=== PATIENT | male | born 1945 | race Asian ===

== ENCOUNTER 2021-09-10 05:10 | Day surgery (SDC) | payer OTHER ==
[2021-09-08 14:34] VITALS: BMI 19.7
[2021-09-10] MEDS ORDERED: LIDOCAINE HCL 1%, 10 MG/ML (20ML VIAL) ONE ×2 (10:13→13:50)
[2021-09-10] MEDS ORDERED: HEPARIN NA (PORCINE) 5,000 UNITS/ML 1ML VIAL ONE ×3 (10:13→13:43)
[2021-09-10] MEDS ORDERED: HEPARIN NA (PORCINE) 5,000 UNITS/ML 1ML VIAL SQ ONE ×2 (14:22→14:40)
[2021-09-10] MEDS ORDERED: ceFAZolin SODIUM 1 GM VIAL IVPB ONE ×2 (14:22→14:30)
[2021-09-10] MEDS ORDERED: LIDOCAINE HCL 1%, 10 MG/ML (20ML VIAL) NR ONE ×2 (14:22→14:35)
[2021-09-10] MEDS ORDERED: IOVERSOL 320 MG/ML ML IV ONE ×2 (14:23→14:41)
[2021-09-10] MEDS ORDERED: MIDAZOLAM HCL 2 MG/2 ML SINGLE DOSE VIAL ONE ×2 (14:25)
[2021-09-10] MEDS ORDERED: ceFAZolin SODIUM 1 GM VIAL ONE (14:30)
[2021-09-10] MEDS ORDERED: PROPOFOL 20 ML ONE ×2 (14:39)
[2021-09-10] MEDS ORDERED: ONDANSETRON 4 MG/2 ML VIAL IVPUSH PRN (14:45)
[2021-09-10] MEDS ORDERED: oxyCODONE HCL 5 MG TABLET PO PRN (14:45)
[2021-09-10] MEDS ORDERED: LABETALOL HCL 5 MG/1 ML (100MG/20 ML VIAL) IVPUSH ONE (17:21)
[2021-09-10] MEDS ORDERED: hydrALAZINE HCL 20 MG/ML VIAL ONE (17:40)
[2021-09-10] MEDS ORDERED: hydrALAZINE HCL 20 MG/ML VIAL IVPUSH ONE (17:45)
[2021-09-10 18:47] VITALS: BP 100/48; PULSE 65; TEMP 97.2
== END 2021-09-10 18:30 | disposition home or self-care (01) ==
LOC: JASU-SURG 05:10
PROVIDERS: ATTEND Surgery Vascular Surgery
PROC: 047M3DZ Dilation of Right Popliteal Artery with Intraluminal Device, Percutaneous Approach (ICD-10-PCS; 2021-09-10)
PROC: B41DYZZ Fluoroscopy of Aorta and Bilateral Lower Extremity Arteries using Other Contrast (ICD-10-PCS; 2021-09-10)
PROC: 047K3EZ Dilation of Right Femoral Artery with Two Intraluminal Devices, Percutaneous Approach (ICD-10-PCS; principal; 2021-09-10 14:00)
DX: I70.211 Atherosclerosis of native arteries of extremities with intermittent claudication, right leg (principal); Z72.0 Tobacco use; E11.9 Type 2 diabetes mellitus without complications; Z79.84 Long term (current) use of oral hypoglycemic drugs
CPT/HCPCS: 37227; C1877; 76000-TC-FY; 82962; 94760; J1644

== ENCOUNTER 2022-11-08 09:04 | Day surgery (SDC) | payer OTHER ==
[2022-11-05 16:56] VITALS: BMI 20.3
[2022-11-08] MEDS ORDERED: LIDOCAINE HCL 1%, 10 MG/ML (20ML VIAL) ONE (12:45)
[2022-11-08] MEDS ORDERED: HEPARIN NA (PORCINE) 5,000 UNITS/ML 1ML VIAL ONE (12:47)
[2022-11-08] MEDS ORDERED: PROPOFOL 20 ML ONE (13:54)
[2022-11-08] MEDS ORDERED: MIDAZOLAM HCL 2 MG/2 ML SINGLE DOSE VIAL ONE (13:55)
[2022-11-08] MEDS ORDERED: ceFAZolin SODIUM 1 GM VIAL IVPB ONE (14:00)
[2022-11-08] MEDS ORDERED: LIDOCAINE HCL 1%, 10 MG/ML (20ML VIAL) NR ONE (14:11)
[2022-11-08] MEDS ORDERED: SUCCINYLCHOLINE CHLORIDE 200 MG/10 ML SYRINGE ONE (14:13)
[2022-11-08] MEDS ORDERED: ePHEDrine SULFATE 50 MG/1 ML AMPULE ONE (14:14)
[2022-11-08] MEDS ORDERED: CLOPIDOGREL BISULFATE 75 MG TABLET (FP) PO ONE (15:13)
[2022-11-08] MEDS ORDERED: LABETALOL HCL 20 MG/4 ML VIAL ONE (15:35)
[2022-11-08] MEDS ORDERED: LABETALOL HCL 20 MG/4 ML VIAL IVPUSH ONE (15:37)
[2022-11-08] MEDS ORDERED: CLOPIDOGREL BISULFATE 75 MG TABLET (FP) ONE (15:54)
[2022-11-08 16:13] VITALS: RESP 18
[2022-11-08 17:36] VITALS: BP 170/74; PULSE 85; TEMP 97.7
== END 2022-11-08 17:45 | disposition home or self-care (01) ==
LOC: JASUSAT 09:04
PROVIDERS: ATTEND Surgery Vascular Surgery
PROC: 04CK3ZZ Extirpation of Matter from Right Femoral Artery, Percutaneous Approach (ICD-10-PCS; 2022-11-08)
PROC: 047K3Z1 Dilation of Right Femoral Artery using Drug-Coated Balloon, Percutaneous Approach (ICD-10-PCS; principal; 2022-11-08 14:00)
DX: I70.211 Atherosclerosis of native arteries of extremities with intermittent claudication, right leg (principal); Z72.0 Tobacco use; I10 Essential (primary) hypertension; E11.9 Type 2 diabetes mellitus without complications
CPT/HCPCS: 37225; C2623; 76000-TC-FY; 93005; 93010; 94760; C1760; C1769; J1644